=== PATIENT | female | born 1975 | race Caucasian/White ===

== ENCOUNTER 2017-12-12 17:55 | Emergency (ER) | payer OTHER ==
[2017-12-12 19:10] LABS: #Basophils 0.1 thou/uL (0.0-0.2); #Eosinphils 0.3 thou/uL (0.0-0.7); #Monocytes 0.7 thou/uL (0.11-0.59); #Neutrophils 6.8 thou/uL (1.40-6.50); %Eosinophils 3.5 % (0.0-10.0); %Lymphocytes 20.1 % (21.0-51.0); %Monocytes 7.1 % (0.0-10.0); %Neutrophils 68.4 % (42.0-75.0); Hemoglobin 13.1 g/dL (12.0-16.0); Mean Corpuscular HGB CONC 32.6 g/dL (32.0-36.0); Mean Corpuscular Hemoglobin 29.5 pg (27.0-31.0); Mean Corpuscular Volume 90.3 fl (81.0-99.0); Mean Platelet Volume 8.7 fL (7.4-10.4); Platelet Count 236 thou/uL (130-400); RBC Distribution Width 13.7 % (11.5-14.5); Red Blood Cell (RBC) Count 4.46 mill/uL (4.20-5.40); White Blood Cell (WBC) Count 9.9 thou/uL (4.8-10.8)
[2017-12-12 19:16] LABS: BHCG - Serum Negative (NEGATIVE); Pregs Control Background? CLEAR/WHITE (CLR/WHITE); Pregs Control Bar Appear? YES (CONTROL BAR)
[2017-12-12 19:31] LABS: ALT (SGPT) 33 U/L (8-55); AST (SGOT) 19 U/L (5-34); Albumin 4.1 g/dL (3.5-5.0); Alkaline Phosphatase 61 U/L (40-150); Anion Gap 14 mmol/L (10-20); BUN (Urea Nitrogen) 18 mg/dL (7.0-18.7); Bilirubin, Total 0.3 mg/dL (0.2-1.2); CK (CPK) 52 U/L (29-168); Calc. Creatinine Clearance 0 mL/min (70-130); Calcium 9.3 mg/dL (7.8-10.44); Carbon Dioxide 24 mmol/L (22-29); Chloride 106 mmol/L (98-107); Estimated GFR-MDRD 76; Globulin 3.2 g/dL (2.4-3.5); Glucose 105 mg/dL (70-105); Potassium 4.2 mmol/L (3.5-5.1); Protein, Total 7.3 g/dL (6.0-8.3); Sodium 140 mmol/L (136-145)
[2017-12-12 19:36] LABS: CKMB 0.7 ng/mL (0-6.6); Troponin I Less than 0.010 ng/mL (< 0.028)
--- NOTE | 2017-12-12 19:58 | RAD ---
TWO VIEWS OF THE CHEST: 12/12/17 COMPARISON: 04/20/16. HISTORY: Cough and fever. FINDINGS: No pneumothorax, pleural fluid, focal consolidation, or alveolar edema. Heart and mediastinal contour s are unremarkable. IMPRESSION: No acute findings. POS: [facility]
[2017-12-12 20:33] LABS: Bilirubin Negative (Negative); Blood, Urine Negative (Negative); Clarity CLEAR (Clear); Glucose, Urine (Dipstick) Negative (Negative); Leukocyte Negative (Negative); Nitrite Negative (Negative); Protein, Urine (Dipstick) Negative (Neg-Trace); Specific Gravity, Urine 1.024 (1.002-1.036); Urobilinogen 0.2 mg/dL (0.2-1.0); pH, Urine 5.5 (5.0-9.0)
== END 2017-12-12 21:41 | disposition home or self-care (01) ==
LOC: ERS 17:55
DX: T67.5XXA Heat exhaustion, unspecified, initial encounter (principal); J40 Bronchitis, not specified as acute or chronic; I48.91 Unspecified atrial fibrillation; J45.909 Unspecified asthma, uncomplicated; I10 Essential (primary) hypertension; F32.9 Major depressive disorder, single episode, unspecified; F25.9 Schizoaffective disorder, unspecified; Z79.899 Other long term (current) drug therapy
CPT/HCPCS: 36415; 71046; 80053; 81003; 82553; 84484; 84703; 85025; 87077; 87086; 93005

== ENCOUNTER 2018-01-09 19:20 | Emergency (ER) | payer OTHER ==
[2018-01-09 20:01] LABS: #Eosinphils 0.3 thou/uL (0.0-0.7); #Lymphocytes 2.3 thou/uL (1.20-3.40); #Monocytes 0.6 thou/uL (0.11-0.59); #Neutrophils 7.5 thou/uL (1.40-6.50); %Basophils 0.3 % (0.0-1.0); %Eosinophils 3.1 % (0.0-10.0); %Lymphocytes 21.2 % (21.0-51.0); %Monocytes 5.8 % (0.0-10.0); %Neutrophils 69.5 % (42.0-75.0); Hemoglobin 12.5 g/dL (12.0-16.0); Mean Corpuscular HGB CONC 33.3 g/dL (32.0-36.0); Mean Corpuscular Hemoglobin 29.4 pg (27.0-31.0); Mean Corpuscular Volume 88.3 fl (81.0-99.0); Mean Platelet Volume 8.7 fL (7.4-10.4); Platelet Count 225 thou/uL (130-400); RBC Distribution Width 14.1 % (11.5-14.5); Red Blood Cell (RBC) Count 4.23 mill/uL (4.20-5.40); White Blood Cell (WBC) Count 10.7 thou/uL (4.8-10.8)
--- NOTE | 2018-01-09 20:14 | RAD ---
TWO VIEWS OF THE CHEST: 01/09/18 COMPARISON: 12/12/17 HISTORY: Difficulty breathing for one hour. FINDINGS: Two views of the chest show normal sized cardiomediastinal silhouette. There is no evidence of consol idation, mass, or pleural effusion. The bones are unremarkable. IMPRESSION: No evidence of acute cardiopulmonary disease. POS: [facility]
[2018-01-09 20:22] LABS: ALT (SGPT) 27 U/L (8-55); AST (SGOT) 16 U/L (5-34); Alkaline Phosphatase 56 U/L (40-150); Anion Gap 11 mmol/L (10-20); BUN (Urea Nitrogen) 18 mg/dL (7.0-18.7); Bilirubin, Total 0.3 mg/dL (0.2-1.2); CK (CPK) 79 U/L (29-168); Calc. Creatinine Clearance 0 mL/min (70-130); Calcium 9.2 mg/dL (7.8-10.44); Carbon Dioxide 25 mmol/L (22-29); Chloride 106 mmol/L (98-107); Estimated GFR-MDRD 89; Glucose 131 mg/dL (70-105); Lipase 13 U/L (8-78); Potassium 3.7 mmol/L (3.5-5.1); Sodium 138 mmol/L (136-145)
[2018-01-09 20:32] LABS: CKMB 1.3 ng/mL (0-6.6); Troponin I Less than 0.010 ng/mL (< 0.028)
[2018-01-09] MEDS ORDERED: Dexamethasone 4 MG TAB ONE (21:01)
== END 2018-01-09 21:08 | disposition home or self-care (01) ==
LOC: ERS 19:20
DX: J45.901 Unspecified asthma with (acute) exacerbation (principal); I48.91 Unspecified atrial fibrillation; I10 Essential (primary) hypertension; F25.9 Schizoaffective disorder, unspecified; F32.9 Major depressive disorder, single episode, unspecified; Z79.899 Other long term (current) drug therapy
CPT/HCPCS: 36415; 71046; 80053; 82550; 82553; 83690; 84484; 85025; 85379; 93005; 94640; J7620; J8540

== ENCOUNTER 2018-09-20 03:47 | Emergency (ER) | payer OTHER ==
[2018-09-20] MEDS ORDERED: Fluorescein Opthalmic Strip ONE (03:58)
[2018-09-20] MEDS ORDERED: Proparacaine 0.5% Opth 15 ML BOT ONE (04:00)
[2018-09-20] MEDS ORDERED: Metoclopramide HCl 10 MG/2 ML VIAL ONE (04:26)
--- NOTE | 2018-09-20 09:33 | CT ---
PRELIMINARY REPORT/[facility]/EMERGENTY AFTER-HOURS PROCEDURE CT Head Without Contrast EXAM DATE/TIME: 09/20/2018 4:23 AM CLINICAL HISTORY: 42 years old, female; Pain; Headache; Headache not specified; Patient HX: F42 presents ed for left ey e pain. PT reports she was watching tv when all of a sudden there was a jabbing pain followed by runn y nose. PT reports eye has been twitching a lot and hurts a little with movement. PT reports no issues prior or eye contact wearing. PT reports pain when she wakes up. PT reports vision blurry but doesnt know if its because of her glasses. PT reports headache. PT reports severe tooth problems as w ell. PT denies fever and chills. TECHNIQUE: Axial computed tomography images of the head/brain without contrast. COMPARISON: No relevant prior studies available. FINDINGS: Brain: No acute findings. No hemorrhage. No significant white matter disease. No edema. Ventricles: No acute findings. No ventriculomegaly. Bones/joints: No acute fracture. Sinuses: No acute findings. No significant air-fluid levels. Mastoid air cells: No acute findings. No mastoid effusion. Soft tissues: No acute findings. IMPRESSION: No acute intracranial abnormality. Thank you for allowing us to participate in the care of your patient. Dictated and Authenticated by: Bo Faith MD 09/20/2018 5:07 AM Central Time ([place] & [place]) FINAL REPORT CT BRAIN WITHOUT CONTRAST: Date: 09/20/18 FINDINGS/IMPRESSION: I agree with the preliminary report given by Karely. POS: [facility]
== END 2018-09-20 05:21 | disposition home or self-care (01) ==
LOC: ERS 03:47
DX: H57.12 Ocular pain, left eye (principal); R51 Headache; I48.91 Unspecified atrial fibrillation; I10 Essential (primary) hypertension; F25.9 Schizoaffective disorder, unspecified; J45.909 Unspecified asthma, uncomplicated; Z79.899 Other long term (current) drug therapy
CPT/HCPCS: 70450; 96365; J2765

== ENCOUNTER 2018-12-16 13:04 | Outpatient (CLI) | payer OTHER ==
--- NOTE | 2018-12-21 13:24 | MMO ---
Bilateral MAMMO Bilat Screen DDI. CLINICAL HISTORY: Patient is 43 years old and is seen for screening. The patient has the following family history of breast cancer: maternal grandmother and paternal grandmother. The patient has no personal history of cancer. VIEWS: The views performed were: bilateral craniocaudal and bilateral mediolateral oblique. This study has been interpreted with the assistance of computer-aided detection. MAMMOGRAM FINDINGS: There are scattered fibroglandular densities. There is an irregular mass measuring 13 millimeters seen in the middle central region of the right breast. In the left breast, there are no suspicious masses, calcifications or areas of architectural distortion. IMPRESSION: MASS IN THE RIGHT BREAST REQUIRES ADDITIONAL EVALUATION. ADDITIONAL IMAGING. ACR BI-RADS Category 0 - Incomplete: Need additional imaging evaluation. [facility] will notify the patient of the need for additional imaging services. MAMMOGRAPHY NOTE: 1. A negative mammogram report should not delay a biopsy if a dominant of clinically suspicious mass is present. 2. Approximately 10% to 15% of breast cancers are not detected by mammography. 3. Adenosis and dense breasts may obscure an underlying neoplasm.
== END 2018-12-16 13:05 | disposition home or self-care (01) ==
LOC: SCSMAMMO 13:04
PROVIDERS: ATTEND Family Medicine
DX: Z12.31 Encounter for screening mammogram for malignant neoplasm of breast (principal); Z80.3 Family history of malignant neoplasm of breast
CPT/HCPCS: 77067

== ENCOUNTER 2018-12-22 19:13 | Emergency (ER) | payer OTHER ==
[~2018-12-22 19:13] MED LIST: ISOVUE-370 76%-LOCM 1 ML ONE
[2018-12-22 19:46] LABS: #Basophils 0.1 thou/uL (0.0-0.2); #Eosinphils 0.4 thou/uL (0.0-0.7); #Lymphocytes 2.7 thou/uL (1.20-3.40); #Monocytes 0.6 thou/uL (0.11-0.59); #Neutrophils 5.9 thou/uL (1.40-6.50); %Basophils 0.7 % (0.0-1.0); %Eosinophils 3.7 % (0.0-10.0); %Monocytes 6.6 % (0.0-10.0); %Neutrophils 61.1 % (42.0-75.0); Hemoglobin 11.9 g/dL (12.0-16.0); Mean Corpuscular HGB CONC 32.9 g/dL (32.0-36.0); Mean Corpuscular Hemoglobin 29.7 pg (27.0-31.0); Mean Corpuscular Volume 90.3 fL (78.0-98.0); Mean Platelet Volume 8.8 fL (7.4-10.4); Platelet Count 223 thou/uL (130-400); RBC Distribution Width 13.3 % (11.5-14.5); Red Blood Cell (RBC) Count 3.99 mill/uL (4.20-5.40); White Blood Cell (WBC) Count 9.6 thou/uL (4.8-10.8)
[2018-12-22 20:06] LABS: ALT (SGPT) 18 U/L (8-55); AST (SGOT) 13 U/L (5-34); Albumin 4.1 g/dL (3.5-5.0); Alkaline Phosphatase 64 U/L (40-150); Anion Gap 11 mmol/L (10-20); BUN (Urea Nitrogen) 18 mg/dL (7.0-18.7); Bilirubin, Total 0.2 mg/dL (0.2-1.2); Calc. Creatinine Clearance 0 mL/min (70-130); Calcium 9.1 mg/dL (7.8-10.44); Carbon Dioxide 29 mmol/L (22-29); Chloride 104 mmol/L (98-107); Estimated GFR-MDRD 78; Globulin 3.2 g/dL (2.4-3.5); Glucose 128 mg/dL (70-105); Potassium 3.9 mmol/L (3.5-5.1); Protein, Total 7.3 g/dL (6.0-8.3); Sodium 140 mmol/L (136-145)
[2018-12-22 20:32] LABS: BHCG - Serum Negative (NEGATIVE); Pregs Control Background? CLEAR/WHITE (CLR/WHITE); Pregs Control Bar Appear? YES (CONTROL BAR)
[2018-12-22] MEDS ORDERED: Morphine 4 MG/ML VIAL ONE (21:12)
[2018-12-22] MEDS ORDERED: Ondansetron PF 4 MG/2 ML Vial ONE (21:12)
--- NOTE | 2018-12-22 21:14 | CT ---
CT ABDOMEN AND PELVIS WITH IV CONTRAST: 12/22/18 HISTORY: Right lower quadrant pain. FINDINGS: The lung bases are clear. The liver, spleen, kidneys, adrenal glands and pancreas have a normal CT ap pearance. No enlarged lymph nodes or free fluid are apparent. Just superior to the uterine fundus and to the right of midline, an oval well circumscribed fluid den sity mass measures up to 5.8 cm and is favored to be associated with the right adnexa. Appendix is not well visualized. No inflammation apparent. IMPRESSION: Large right ovarian cyst. POS: [facility]
--- NOTE | 2018-12-22 23:32 | ULT ---
PELVIC SONOGRAM TRANSABDOMINAL AND TRANSVAGINAL IMAGING WITH DUPLEX EVALUATION 12/22/18 HISTORY: Pelvic pain. FINDINGS: Urinary bladder is unremarkable. Uterus has a heterogeneous echotexture and measures up to 11.7 cm. E ndometrium is 0.6 cm. No free fluid within the pelvis. Right ovary is 5.4 cm. Cyst measures up to 4.4 cm. Good color and spectral doppler flow. Left ovary is 3.7 cm with good color and spectral doppler flow. IMPRESSION: Right ovarian cyst, 4.4 cm. POS: [facility]
== END 2018-12-23 00:01 | disposition home or self-care (01) ==
LOC: ERS 19:13
DX: N83.201 Unspecified ovarian cyst, right side (principal); I48.91 Unspecified atrial fibrillation; J45.909 Unspecified asthma, uncomplicated; F20.9 Schizophrenia, unspecified; F32.9 Major depressive disorder, single episode, unspecified; Z79.51 Long term (current) use of inhaled steroids; Z79.899 Other long term (current) drug therapy
CPT/HCPCS: 36415; 74177; 76856; 80053; 83690; 84703; 85025; 96361; 96374; 96375; J2270; J2405; Q9966

== ENCOUNTER 2019-01-01 14:06 | Outpatient (CLI) | payer OTHER ==
--- NOTE | 2019-01-01 14:44 | MMO ---
Right Breast MAMMO Unilat Diag DDI RT+LEONOR. CLINICAL HISTORY: Patient is 43 years old and is seen for additional evaluation requested from prior study. The patient has the following family history of breast cancer: maternal grandmother and paternal grandmother. The patient has no personal history of cancer. VIEWS: The views performed were: right craniocaudal spot compression with tomosynthesis; right mediolateral oblique spot compression with tomosynthesis; and right mediolateral with tomosynthesis. FILMS COMPARED: The present examination has been compared to prior imaging studies performed at [facility] on 12/16/2018, and at [facility] on 01/01/2019. MAMMOGRAM FINDINGS: There are scattered fibroglandular densities. There are no suspicious masses, suspicious calcifications, or new areas of architectural distortion. The asymmetry seen at screening mammography does not persist at additional imaging, compatible with superimposed tissue. No sonographic abnormality is evident. IMPRESSION: THERE IS NO MAMMOGRAPHIC EVIDENCE OF MALIGNANCY. A ROUTINE FOLLOW-UP MAMMOGRAM IN 1 YEAR IS RECOMMENDED. THE RESULTS OF THIS EXAM WERE SENT TO THE PATIENT. ACR BI-RADS Category 1 - Negative MAMMOGRAPHY NOTE: 1. A negative mammogram report should not delay a biopsy if a dominant of clinically suspicious mass is present. 2. Approximately 10% to 15% of breast cancers are not detected by mammography. 3. Adenosis and dense breasts may obscure an underlying neoplasm.
--- NOTE | 2019-01-01 14:53 | ULT ---
LIMITED RIGHT BREAST ULTRASOUND: DATE: 01/01/2019. PROVIDED CLINICAL HISTORY: Abnormal mammogram. FINDINGS: Limited sonographic interrogation was performed of the right breast in the retroareolar 12 o'clock po sitions. The sonographic appearance of the entire breast parenchyma appears normal. IMPRESSION: BIRADS category 1 - negative. Annual screening mammography recommended. POS: [facility]
== END 2019-01-01 14:07 | disposition home or self-care (01) ==
LOC: BICMAMMO 14:06
PROVIDERS: ATTEND Family Medicine
DX: N63.10 Unspecified lump in the right breast, unspecified quadrant (principal); Z80.3 Family history of malignant neoplasm of breast
CPT/HCPCS: G0279

== ENCOUNTER 2019-03-04 13:17 | Observation (INO) | payer OTHER ==
[2019-03-04 14:13] LABS: #Eosinphils 0.3 thou/uL (0.0-0.7); #Lymphocytes 1.8 thou/uL (1.20-3.40); #Monocytes 0.6 thou/uL (0.11-0.59); #Neutrophils 7.9 thou/uL (1.40-6.50); %Basophils 0.4 % (0.0-1.0); %Eosinophils 2.4 % (0.0-10.0); %Lymphocytes 16.7 % (21.0-51.0); %Monocytes 5.8 % (0.0-10.0); %Neutrophils 74.7 % (42.0-75.0); Hemoglobin 13.5 g/dL (12.0-16.0); Mean Corpuscular HGB CONC 32.8 g/dL (32.0-36.0); Mean Corpuscular Hemoglobin 29.6 pg (27.0-31.0); Mean Corpuscular Volume 90.3 fL (78.0-98.0); Mean Platelet Volume 8.9 fL (7.4-10.4); Platelet Count 258 thou/uL (130-400); RBC Distribution Width 14.3 % (11.5-14.5); Red Blood Cell (RBC) Count 4.54 mill/uL (4.20-5.40); White Blood Cell (WBC) Count 10.6 thou/uL (4.8-10.8)
[2019-03-04 14:36] LABS: ALT (SGPT) 29 U/L (8-55); AST (SGOT) 17 U/L (5-34); Albumin 4.4 g/dL (3.5-5.0); Alkaline Phosphatase 60 U/L (40-150); Anion Gap 12 mmol/L (10-20); BUN (Urea Nitrogen) 15 mg/dL (7.0-18.7); Bilirubin, Total 0.3 mg/dL (0.2-1.2); Calc. Creatinine Clearance 0 mL/min (70-130); Calcium 9.5 mg/dL (7.8-10.44); Carbon Dioxide 28 mmol/L (22-29); Chloride 103 mmol/L (98-107); Estimated GFR-MDRD 76; Globulin 3.5 g/dL (2.4-3.5); Glucose 101 mg/dL (70-105); Potassium 4.2 mmol/L (3.5-5.1); Protein, Total 7.9 g/dL (6.0-8.3); Sodium 139 mmol/L (136-145)
[2019-03-04 16:24] LABS: Bilirubin Negative (Negative); Blood, Urine Negative (Negative); Clarity CLOUDY (Clear); Glucose, Urine (Dipstick) Negative (Negative); Leukocyte Small (Negative); Nitrite Negative (Negative); Protein, Urine (Dipstick) Negative (Neg-Trace); Specific Gravity, Urine 1.026 (1.002-1.036); Urobilinogen 0.2 mg/dL (0.2-1.0); pH, Urine 5.5 (5.0-9.0)
[2019-03-04 16:26] LABS: Bacteria/HPF None Seen HPF (None Seen); Hyaline Casts/LPF 0-3 HYALINE CAST LPF (0-3 Hyaline); Pathc Cast-AUWi Flag 0.68 (0-2.49); Pregnancy Test - Urine (BHCG) Negative (Negative); Pregu Control Background? CLEAR/WHITE (CLR/WHITE); Pregu Control Bar Appear? YES (CONTROL BAR); RBC/HPF 0-3 HPF (0-3); Specific Gravity 1.026 (1.002-1.036)
--- NOTE | 2019-03-04 16:33 | ULT ---
ULTRASOUND PELVIC ULTRASOUND TRANSVAGINAL DOPPLER DUPLEX: 03/04/19 HISTORY: 43-year-old female with pelvic pain and vaginal bleeding (spotting). History of right ovarian cyst. TECHNIQUE: Transabdominal transducer used to evaluate intrapelvic contents using the urinary bladder as an acous tic window. Endovaginal transducer used to visualize intrapelvic contents in greater detail. Color fl ow Doppler and Pulsed Doppler spectral waveform analysis of ovaries. FINDINGS: Visualization of intrapelvic contents is limited because of body habitus. Uterus: 11 x 7.5 x 5.5 cm. Endometrial stripe: 1.3 cm (13 mm). Right ovary: Approximately 5.5 x 5 x 4 cm. Dominated by a large 4.5 x 4 x 4.5 cm cyst, similar in siz e to prior ultrasound of 12/22/18. Little right ovarian tissue is visualized because it is peripherally displaced and stretched by the l arge cyst, and therefore we are unable to document blood flow by Doppler. Left ovary not visualized. No free fluid identified. IMPRESSION: 1. Large 4.5 cm right ovarian cyst. 2. Left ovary not visualized. 3. Thickened endometrial stripe, 13 mm. DULCE Ardon POS: [facility]
[2019-03-04] MEDS ORDERED: Ketorolac Tromethamine 30 MG/ML VIAL ONE (17:38)
[2019-03-04 19:01] LABS: PTT 25.1 SEC (22.9-36.1); Prothrombin Time 12.9 SEC (12.0-14.7)
--- NOTE | 2019-03-04 21:33 | ULT ---
Exam: Pelvic ultrasound HISTORY: Right lower quadrant pain. Flow not visualized in right ovary on recent study. Reevaluation. COMPARISON: 03/04/2019 at 1555 hours. TECHNIQUE: Multiple grayscale and color Doppler images were obtained in a transabdominal and transvag inal pelvic ultrasound. Spectral analysis of the Doppler waveforms of the ovaries were performed. FINDINGS: CERVIX: Unremarkable UTERUS: Normal in size without focal abnormality. ENDOMETRIAL STRIPE: 14 mm which is mildly increased. No fluid or fluid collection is seen in the endo metrial canal. No free fluid is present. RIGHT OVARY: Previously seen right ovarian cyst is again noted as noted on the prior exam, no signifi cant adjacent ovarian tissue is able to be delineated, as a result arterial flow is not documented within the right ovary. LEFT OVARY:Not visualized. IMPRESSION: 1. Right ovarian cyst is again seen. As described on prior exam, little adjacent ovarian tissue is ab le to be delineated. No arterial flow is able to be detected within the right ovary. This may potentially be a factor of difficulty visualizing adequate ovarian tissue to obtain a Doppler wavefor m. However, as a result of not detecting arterial flow which again may be a factor of size of the cyst, ovarian torsion on the right cannot be excluded based on this exam. 2. Nonvisualization left ovary. 3. Thickened endometrial stripe measuring 14 mm. No fluid or fluid collection is seen in the endometr ial canal.
[2019-03-04 22:40] VITALS: BMI 52.1
[2019-03-04 23:03] VITALS: BP 140/65
[2019-03-05 01:16] VITALS: TEMP 99.4
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
--- NOTE | 2019-03-06 12:07 | EKG ---
Test Reason : Blood Pressure : / mmHG Vent. Rate : 073 BPM Atrial Rate : 073 BPM P-R Int : 170 ms QRS Dur : 102 ms QT Int : 426 ms P-R-T Axes : 045 003 007 degrees QTc Int : 469 ms Normal sinus rhythm Normal ECG Confirmed by ANDREZ SLOAN M.D. ([id number]), film or videotape editor CATIE RAMIREZ ([id number]) on 03/06/2019 12:07:07 PM Referred By: Confirmed By:ANDREZ SLOAN M.D.
== END 2019-03-05 01:10 | disposition home or self-care (01) ==
LOC: ERS 13:17 → 3SW 19:57
PROVIDERS: ADMIT Obstetrics & Gynecology; ATTEND Obstetrics & Gynecology
DX: N83.201 Unspecified ovarian cyst, right side (principal); N93.9 Abnormal uterine and vaginal bleeding, unspecified; I10 Essential (primary) hypertension; I48.91 Unspecified atrial fibrillation; E11.9 Type 2 diabetes mellitus without complications; F25.1 Schizoaffective disorder, depressive type; Z91.018 Allergy to other foods; Z91.02 Food additives allergy status; Z79.899 Other long term (current) drug therapy; Z79.84 Long term (current) use of oral hypoglycemic drugs
CPT/HCPCS: 36415; 76856; 80053; 81003; 81015; 81025; 85025; 85610; 85730; 86850; 86900; 86901; 93005; 96372; G0378; J1885

== ENCOUNTER 2019-06-15 08:09 | Day surgery (SDC) | payer OTHER ==
[2019-06-14 16:01] VITALS: BMI 51.2
--- NOTE | 2019-06-15 07:37 | HP ---
HISTORY OF PRESENT ILLNESS: A 43-year-old female with history of chronic acid reflex over the years Her symptoms are mild at times. Her symptoms got worse for the past six months . She has lots of heartburn. She also has a history of some black tarry stool. She was taking a blood thinner which was stopped by her primary care doctor. She was referred to me because of worsening discomfort and also black tarry stool. ALLERGIES: NO DRUG ALLERGY, BUT ALLERGIC TO MULTIPLE FOODS. SOCIAL HISTORY: The patient is a nonsmoker, drinks alcohol socially. MEDICAL ILLNESSES: 1. Hypertension. 2. Chronic acid reflex. 3. Atrial fibrillation. 4. Asthma. 5. Anxiety. 6. Restless legs syndrome. 7. Diabetes. PHYSICAL EXAMINATION: GENERAL: The patient is obese, appears comfortable. VITAL SIGNS: Pulse is 70, blood pressure 130/88. HEENT: Conjunctivae are clear. CARDIOVASCULAR: First and second heart sounds. LUNGS: Clear to auscultation. ABDOMEN: Soft to palpate. No tenderness noted. Bowel sounds are normal. ADMITTING DIAGNOSIS: A 43-year-old female with worsening acid reflex and black tarry stool. Plan is for EGD. Job ID: [id number] [facility]
--- NOTE | 2019-06-15 11:04 | OP ---
DATE OF PROCEDURE: 06/15/2019 PROCEDURE PERFORMED: Esophagogastroduodenoscopy with biopsy. PREOPERATIVE DIAGNOSIS: A 43-year-old female with longstanding acid reflux, worsening symptoms over the last 6 months. She had an episode of black tarry stool couple of weeks ago. The patient underwent an esophagogastroduodenoscopy . POSTOPERATIVE DIAGNOSES: 1. Esophageal ulcer, esophagitis, distal esophagus. 2. Three small gastric polyps, gastric body. 3. Duodenitis with 2 ulcerations in the descending duodenum without any bleeding. DESCRIPTION OF PROCEDURE: The patient was placed on her left lateral position and was given sedation by Anesthesia Department. A Pentax video gastroscope under direct vision passed down the oropharynx, past the GE junction into the stomach and subsequently into the descending duodenum. The esophageal mucosa appeared normal over the upper two-thirds. At the GE junction and distal esophagus, the patient was found to have an ulceration with esophagitis. Biopsy obtained from the area. The fundus and cardia, no pathology seen. Over the proximal gastric body, she had three small polyps. They were not biopsied. The gastric body, gastric antrum, incisura angularis, no pathology seen. The duodenal bulb, no pathology seen. The descending duodenum shows multiple areas of patchy erythema and also 2 ulcerations. The scope was withdrawn back and biopsies obtained from the gastric antrum and gastric body. The stomach decompressed and the scope removed. DISCHARGE PLANNING: This is a 43-year-old female with longstanding acid reflux, came for an EGD because of worsening acid reflux and also history of black tarry stool. She underwent EGD and was found to have an esophageal ulcer, esophagitis, and 2 ulcers in the descending duodenum and duodenitis. DISCHARGE RECOMMENDATIONS: 1. Omeprazole 40 once a day. 2. Weight loss stressed to the patient and also dietary and lifestyle modification explained. 3. Restart Plavix from today. 4. Come back to clinic in 2 weeks. Job ID: [id number] [facility]
== END 2019-06-15 11:00 | disposition home or self-care (01) ==
LOC: SDC 08:09
PROVIDERS: ATTEND Internal Medicine Gastroenterology
PROC: 0DB78ZX Excision of Stomach, Pylorus, Via Natural or Artificial Opening Endoscopic, Diagnostic (ICD-10-PCS; principal; 2019-06-15)
PROC: 0DB58ZX Excision of Esophagus, Via Natural or Artificial Opening Endoscopic, Diagnostic (ICD-10-PCS; principal; 2019-06-15)
DX: K29.51 Unspecified chronic gastritis with bleeding (principal); K22.70 Barrett's esophagus without dysplasia; K29.81 Duodenitis with bleeding; K31.7 Polyp of stomach and duodenum; K21.0 Gastro-esophageal reflux disease with esophagitis; I10 Essential (primary) hypertension; I48.91 Unspecified atrial fibrillation; J45.909 Unspecified asthma, uncomplicated; F41.9 Anxiety disorder, unspecified; G25.81 Restless legs syndrome; E11.9 Type 2 diabetes mellitus without complications; E66.9 Obesity, unspecified; Z68.43 Body mass index [BMI] 50.0-59.9, adult; Z79.02 Long term (current) use of antithrombotics/antiplatelets; Z79.84 Long term (current) use of oral hypoglycemic drugs; Z79.899 Other long term (current) drug therapy; Z91.018 Allergy to other foods
CPT/HCPCS: 88305; 88312; 88313

== ENCOUNTER 2019-11-09 11:23 | Emergency (ER) | payer OTHER, SELFPAY ==
--- NOTE | 2019-11-09 11:52 | RAD ---
Left ANKLE 3 VIEWS: HISTORY: Injury, left ankle pain FINDINGS: Soft tissue swelling is present. The ankle mortise is maintained. No acute fracture or dislocation is identified. Calcaneal spurs are present
[2019-11-09] MEDS ORDERED: Ibuprofen 800 MG TAB ONE (11:58)
== END 2019-11-09 12:24 | disposition home or self-care (01) ==
LOC: ERS 11:23
DX: S93.402A Sprain of unspecified ligament of left ankle, initial encounter (principal); E11.9 Type 2 diabetes mellitus without complications; I48.91 Unspecified atrial fibrillation; J45.909 Unspecified asthma, uncomplicated; G25.81 Restless legs syndrome; F32.9 Major depressive disorder, single episode, unspecified; F25.9 Schizoaffective disorder, unspecified; Z79.84 Long term (current) use of oral hypoglycemic drugs; Z79.899 Other long term (current) drug therapy; W17.89XA Other fall from one level to another, initial encounter

== ENCOUNTER 2019-11-29 11:56 | Emergency (ER) | payer OTHER, SELFPAY ==
[2019-11-29 14:51] LABS: #Basophils 0.1 thou/uL (0.0-0.2); #Eosinphils 0.4 thou/uL (0.0-0.7); #Monocytes 0.7 thou/uL (0.11-0.59); #Neutrophils 6.4 thou/uL (1.40-6.50); %Basophils 0.7 % (0.0-1.0); %Eosinophils 3.7 % (0.0-10.0); %Lymphocytes 20.8 % (21.0-51.0); %Monocytes 7.2 % (0.0-10.0); %Neutrophils 67.6 % (42.0-75.0); Hemoglobin 12.7 g/dL (12.0-16.0); Mean Corpuscular HGB CONC 32.9 g/dL (32.0-36.0); Mean Corpuscular Hemoglobin 29.1 pg (27.0-31.0); Mean Corpuscular Volume 88.6 fL (78.0-98.0); Mean Platelet Volume 9.1 fL (7.4-10.4); Platelet Count 253 thou/uL (130-400); RBC Distribution Width 14.4 % (11.5-14.5); Red Blood Cell (RBC) Count 4.37 mill/uL (4.20-5.40); White Blood Cell (WBC) Count 9.5 thou/uL (4.8-10.8)
--- NOTE | 2019-11-29 14:59 | RAD ---
Portable frontal chest radiograph: 11/29/2019 COMPARISON: 01/24/2017 HISTORY: Pain FINDINGS: Lungs are clear. Heart and mediastinal contours appear within normal limits. IMPRESSION: No acute findings.
[2019-11-29 15:10] LABS: ALT (SGPT) 71 U/L (8-55); AST (SGOT) 47 U/L (5-34); Albumin 4.3 g/dL (3.5-5.0); Alkaline Phosphatase 63 U/L (40-110); Anion Gap 13 mmol/L (10-20); BUN (Urea Nitrogen) 12 mg/dL (7.0-18.7); Bilirubin, Total 0.2 mg/dL (0.2-1.2); Calc. Creatinine Clearance 0 mL/min (70-130); Calcium 9.3 mg/dL (7.8-10.44); Carbon Dioxide 26 mmol/L (22-29); Chloride 103 mmol/L (98-107); Estimated GFR-MDRD 84; Globulin 3.3 g/dL (2.4-3.5); Glucose 103 mg/dL (70-105); Potassium 4.1 mmol/L (3.5-5.1); Protein, Total 7.6 g/dL (6.0-8.3); Sodium 138 mmol/L (136-145)
[2019-11-29] MEDS ORDERED: Ibuprofen 200 MG TAB ONE (15:44)
[2019-11-29] MEDS ORDERED: hydrOXYzine 25 MG TAB ONE ×3 (16:31→16:33)
[2019-11-29 17:19] LABS: Bacteria/HPF 4+ HPF (None Seen); Squamous Epithelial Greater than 50 HPF (0-3); Transitional Epithelial 0-3 HPF (None Seen); WBC/HPF 21-50 HPF (0-3)
[2019-11-29 17:21] LABS: Bilirubin Negative (Negative); Blood, Urine Negative (Negative); Glucose, Urine (Dipstick) Negative (Negative); Leukocyte Small (Negative); Nitrite Negative (Negative); Protein, Urine (Dipstick) Trace mg/dL (Neg-Trace); Urobilinogen 0.2 mg/dL (Less than 2)
[2019-11-29 17:23] LABS: Clarity Clear (Clear)
== END 2019-11-29 17:57 | disposition home or self-care (01) ==
LOC: ERS 11:56
DX: R55 Syncope and collapse (principal); N39.0 Urinary tract infection, site not specified; I48.91 Unspecified atrial fibrillation; E11.9 Type 2 diabetes mellitus without complications; J45.909 Unspecified asthma, uncomplicated; F25.9 Schizoaffective disorder, unspecified; I10 Essential (primary) hypertension; F32.9 Major depressive disorder, single episode, unspecified; Z79.899 Other long term (current) drug therapy; Z79.84 Long term (current) use of oral hypoglycemic drugs
CPT/HCPCS: 36415; 71045; 80053; 81003; 81015; 84443; 84484; 85025; 85379; 93005

== ENCOUNTER 2020-07-27 23:26 | Emergency (ER) | payer OTHER ==
[2020-07-27] MEDS ORDERED: Lidocaine Viscous Sol 2% 15 ml UD Cup ONE (23:50)
[2020-07-27] MEDS ORDERED: Mag-Al 1200 mg/1200 mg/30 ML UDCUP ONE (23:50)
[2020-07-27 23:58] LABS: #Basophils 0.1 thou/uL (0.0-0.2); #Eosinphils 0.4 thou/uL (0.0-0.7); #Lymphocytes 2.5 thou/uL (1.20-3.40); #Monocytes 0.6 thou/uL (0.11-0.59); #Neutrophils 6.8 thou/uL (1.40-6.50); %Basophils 0.7 % (0.0-1.0); %Eosinophils 3.4 % (0.0-10.0); %Lymphocytes 23.9 % (21.0-51.0); %Monocytes 6.1 % (0.0-10.0); %Neutrophils 65.9 % (42.0-75.0); Hemoglobin 11.5 g/dL (12.0-16.0); Mean Corpuscular HGB CONC 32.7 g/dL (32.0-36.0); Mean Corpuscular Hemoglobin 27.6 pg (27.0-31.0); Mean Corpuscular Volume 84.3 fL (78.0-98.0); Mean Platelet Volume 9.5 fL (7.4-10.4); Platelet Count 261 thou/uL (130-400); RBC Distribution Width 15.7 % (11.5-14.5); Red Blood Cell (RBC) Count 4.16 mill/uL (4.20-5.40); White Blood Cell (WBC) Count 10.4 thou/uL (4.8-10.8)
[2020-07-28 00:19] LABS: ALT (SGPT) 37 U/L (8-55); AST (SGOT) 29 U/L (5-34); Albumin 3.9 g/dL (3.5-5.0); Alkaline Phosphatase 60 U/L (40-110); Anion Gap 15 mmol/L (10-20); BUN (Urea Nitrogen) 17 mg/dL (7.0-18.7); Bilirubin, Total 0.4 mg/dL (0.2-1.2); Calc. Creatinine Clearance 0 mL/min (70-130); Calcium 8.8 mg/dL (7.8-10.44); Carbon Dioxide 28 mmol/L (22-29); Chloride 101 mmol/L (98-107); Estimated GFR-MDRD 68; Globulin 3.2 g/dL (2.4-3.5); Glucose 124 mg/dL (70-105); Lipase 14 U/L (8-78); Potassium 3.7 mmol/L (3.5-5.1); Protein, Total 7.1 g/dL (6.0-8.3); Sodium 140 mmol/L (136-145)
[2020-07-28 00:46] LABS: BHCG - Serum Negative (NEGATIVE); Pregs Control Background? CLEAR/WHITE (CLR/WHITE); Pregs Control Bar Appear? YES (CONTROL BAR)
--- NOTE | 2020-07-28 07:28 | RAD ---
AP CHEST: HISTORY: Chest pain. FINDINGS: Lungs appear clear. No infiltrate identified. Heart and mediastinum unremarkable. IMPRESSION: No acute process. POS: [facility]
--- NOTE | 2020-07-28 07:33 | CT ---
PRELIMINARY REPORT/[facility]/EMERGENCY AFTER HOURS PROCEDURE: FINAL REPORT EMERGENT AFTER HOURS CTA OF THE CHEST WITH CONTRAST: FINDINGS/IMPRESSION: I agree with the findings and impression given in the preliminary report per [facility]. 1. No evidence of pulmonary thromboembolism. 2. There is a right thyroid hypodensity that can be further evaluated with a nonemergent outpatient thyroid ultrasound. POS: [facility]
== END 2020-07-28 01:42 | disposition home or self-care (01) ==
LOC: ERS 23:26
DX: R07.89 Other chest pain (principal); R06.00 Dyspnea, unspecified; E04.1 Nontoxic single thyroid nodule; I10 Essential (primary) hypertension; E11.9 Type 2 diabetes mellitus without complications; I48.91 Unspecified atrial fibrillation; I49.9 Cardiac arrhythmia, unspecified; J45.909 Unspecified asthma, uncomplicated; F25.9 Schizoaffective disorder, unspecified; F32.9 Major depressive disorder, single episode, unspecified; Z79.899 Other long term (current) drug therapy; Z79.84 Long term (current) use of oral hypoglycemic drugs
CPT/HCPCS: 71045; 71275; 80053; 83690; 84484; 84703; 85025; 85379; 93005

== ENCOUNTER 2021-02-07 15:29 | Emergency (ER) | payer OTHER ==
[2021-02-07] MEDS ORDERED: Oxymetazoline HCl 0.05% (30 ML BOT) ONE (16:11)
== END 2021-02-07 16:31 | disposition home or self-care (01) ==
LOC: ERS 15:29
DX: J45.901 Unspecified asthma with (acute) exacerbation (principal); I10 Essential (primary) hypertension; E11.9 Type 2 diabetes mellitus without complications; I49.9 Cardiac arrhythmia, unspecified; I48.91 Unspecified atrial fibrillation
CPT/HCPCS: 36415; 71045

== ENCOUNTER 2021-06-08 20:28 | Emergency (ER) | payer OTHER, SELFPAY ==
[2021-06-08 21:21] LABS: #Eosinphils 0.2 thou/uL (0.0-0.7); #Lymphocytes 2.5 thou/uL (1.20-3.40); #Neutrophils 7.6 thou/uL (1.40-6.50); %Basophils 0.2 % (0.0-1.0); %Eosinophils 1.6 % (0.0-10.0); %Lymphocytes 22.4 % (21.0-51.0); %Monocytes 8.5 % (0.0-10.0); %Neutrophils 67.2 % (42.0-75.0); Hemoglobin 11.2 g/dL (12.0-16.0); Mean Corpuscular HGB CONC 31.5 g/dL (32.0-36.0); Mean Corpuscular Hemoglobin 23.6 pg (27.0-31.0); Mean Corpuscular Volume 75.1 fL (78.0-98.0); Mean Platelet Volume 10.8 fL (7.4-10.4); Platelet Count 329 thou/uL (130-400); Red Blood Cell (RBC) Count 4.75 mill/uL (4.20-5.40); White Blood Cell (WBC) Count 11.3 thou/uL (4.8-10.8)
[2021-06-08] MEDS ORDERED: Lorazepam 1 MG TAB ONE (21:23)
[2021-06-08] MEDS ORDERED: Acetaminophen 500 MG TAB ONE (21:24)
[2021-06-08] MEDS ORDERED: Ibuprofen 200 MG TAB ONE (21:24)
[2021-06-08 21:37] LABS: Acetaminophen Less than 6.0 mcg/mL (10.0-30.0); Alcohol Less than 10 mg/dL (Less than 10); Salicylate Less than 8.0 mg/dL (15.0-30.0)
[2021-06-08 21:38] LABS: ALT (SGPT) 28 U/L (8-55); AST (SGOT) 20 U/L (5-34); Albumin 4.3 g/dL (3.5-5.0); Alkaline Phosphatase 70 U/L (40-110); BUN (Urea Nitrogen) 11 mg/dL (7.0-18.7); Bilirubin, Total 0.4 mg/dL (0.2-1.2); Calc. Creatinine Clearance 0 mL/min (70-130); Calcium 9.5 mg/dL (7.8-10.44); Carbon Dioxide 25 mmol/L (22-29); Glucose 97 mg/dL (70-105); Protein, Total 7.3 g/dL (6.0-8.3)
[2021-06-08 22:12] LABS: Anion Gap 18 mmol/L (10-20); Chloride 104 mmol/L (98-107); Sodium 142 mmol/L (136-145)
[2021-06-08 22:34] LABS: SARS-CoV-2 NAA Rapid Test Not Detected (NotDetected)
[2021-06-09 00:12] LABS: Amphetamine Not Detected (NotDetected); Barbiturates Screen Not Detected (NotDetected); Benzodiazepine Screen Detected (NotDetected); Cocaine Metabolite Screen Not Detected (NotDetected); Methadone Not Detected (NotDetected); Methamphetamine Not Detected (NotDetected); Opiate Screen Not Detected (NotDetected); Oxycodone Screen Not Detected (NotDetected); Phencyclidine (PCP) Not Detected (NotDetected); THC/Cannabinoid Screen Detected (NotDetected); Tricyclic Screen Not Detected (NotDetected)
[2021-06-09 00:13] LABS: Bilirubin Negative (Negative); Blood, Urine 3+ (Negative); Clarity Turbid (Clear); Glucose, Urine (Dipstick) Normal (Negative); Ketone, Urine Trace mg/dL (Negative); Leukocyte 250 Leu/uL (Negative); Nitrite Negative (Negative); Protein, Urine (Dipstick) 30 mg/dL (Neg-Trace); RBC/HPF Greater than 50 HPF (0-3); Specific Gravity, Urine 1.025 (1.002-1.036); Squamous Epithelial 21-50 HPF (0-3); pH, Urine 6.5 (5.0-9.0)
[2021-06-09 00:22] LABS: Bacteria/HPF 2+ HPF (None Seen)
== END 2021-06-09 03:55 | disposition home or self-care (01) ==
LOC: ERS 20:28
DX: F32.9 Major depressive disorder, single episode, unspecified (principal); S80.812A Abrasion, left lower leg, initial encounter; S80.811A Abrasion, right lower leg, initial encounter; Z20.822 Contact with and (suspected) exposure to COVID-19; I10 Essential (primary) hypertension; E11.9 Type 2 diabetes mellitus without complications; I48.91 Unspecified atrial fibrillation; J45.909 Unspecified asthma, uncomplicated; G25.81 Restless legs syndrome; Z79.84 Long term (current) use of oral hypoglycemic drugs; W19.XXXA Unspecified fall, initial encounter
CPT/HCPCS: 36415; 80053; 80306; 80307; 81003; 81015; 85025; 99285; U0002

== ENCOUNTER 2021-11-13 22:39 | Emergency (ER) | payer SELFPAY ==
[2021-11-13] MEDS ORDERED: Milk Of Magnesia 30 ML UDCUP ONE (23:07)
[2021-11-14 00:43] LABS: #Eosinphils 0.3 thou/uL (0.0-0.7); #Lymphocytes 2.5 thou/uL (1.20-3.40); #Monocytes 0.8 thou/uL (0.11-0.59); #Neutrophils 5.3 thou/uL (1.40-6.50); %Basophils 0.4 % (0.0-1.0); %Eosinophils 3.1 % (0.0-10.0); %Lymphocytes 27.7 % (21.0-51.0); %Monocytes 8.8 % (0.0-10.0); Hemoglobin 12.2 g/dL (12.0-16.0); Mean Corpuscular HGB CONC 33.1 g/dL (32.0-36.0); Mean Corpuscular Hemoglobin 30.5 pg (27.0-31.0); Mean Corpuscular Volume 92.3 fL (78.0-98.0); Platelet Count 200 thou/uL (130-400); RBC Distribution Width 14.4 % (11.5-14.5); White Blood Cell (WBC) Count 8.8 thou/uL (4.8-10.8)
[2021-11-14 00:49] LABS: BHCG - Serum Negative (NEGATIVE); Pregs Control Background? CLEAR/WHITE (CLR/WHITE); Pregs Control Bar Appear? YES (CONTROL BAR)
[2021-11-14 00:58] LABS: ALT (SGPT) 13 U/L (8-55); AST (SGOT) 10 U/L (5-34); Albumin 3.8 g/dL (3.5-5.0); Alkaline Phosphatase 58 U/L (40-110); Anion Gap 8 mmol/L (10-20); BUN (Urea Nitrogen) 16 mg/dL (7.0-18.7); Bilirubin, Total 0.2 mg/dL (0.2-1.2); Calc. Creatinine Clearance 0 mL/min (70-130); Calcium 8.8 mg/dL (7.8-10.44); Carbon Dioxide 33 mmol/L (22-29); Chloride 103 mmol/L (98-107); Globulin 2.8 g/dL (2.4-3.5); Glucose 87 mg/dL (70-105); Lipase 18 U/L (8-78); Protein, Total 6.6 g/dL (6.0-8.3); Sodium 140 mmol/L (136-145)
== END 2021-11-14 02:30 | disposition home or self-care (01) ==
LOC: ERS 22:39
DX: R10.32 Left lower quadrant pain (principal); I10 Essential (primary) hypertension; E11.9 Type 2 diabetes mellitus without complications; I48.91 Unspecified atrial fibrillation; J45.909 Unspecified asthma, uncomplicated; G25.81 Restless legs syndrome; Z79.899 Other long term (current) drug therapy; Z79.51 Long term (current) use of inhaled steroids
CPT/HCPCS: 74177; 80053; 83690; 84703; 85025